=== PATIENT | male | born 1995 | race Caucasian/White ===

== ENCOUNTER 2020-09-29 05:05 | Emergency (ER) | payer SELFPAY ==
[2020-09-29 06:17] LABS: Bilirubin Negative (Negative); Blood, Urine 3+ (Negative); Clarity Clear (Clear); Glucose, Urine (Dipstick) Normal (Negative); Ketone, Urine Negative (Negative); Leukocyte Negative Leu/uL (Negative); Nitrite Negative (Negative); Protein, Urine (Dipstick) Negative (Neg-Trace); Specific Gravity, Urine 1.012 (1.002-1.036); Urobilinogen Normal mg/dL (Less than 2); pH, Urine 5.5 (5.0-9.0)
[2020-09-29 07:24] LABS: #Basophils 0.1 thou/uL (0.0-0.2); #Eosinphils 0.1 thou/uL (0.0-0.7); #Lymphocytes 2.1 thou/uL (1.20-3.40); #Monocytes 0.7 thou/uL (0.11-0.59); #Neutrophils 5.6 thou/uL (1.40-6.50); %Basophils 0.9 % (0.0-1.0); %Eosinophils 1.3 % (0.0-10.0); %Lymphocytes 24.4 % (21.0-51.0); %Monocytes 8.4 % (0.0-10.0); %Neutrophils 64.9 % (42.0-75.0); Hemoglobin 16.6 g/dL (14.0-18.0); Mean Corpuscular HGB CONC 35.3 g/dL (32.0-36.0); Mean Corpuscular Hemoglobin 32.3 pg (27.0-31.0); Mean Corpuscular Volume 91.3 fL (78.0-98.0); Mean Platelet Volume 7.4 fL (7.4-10.4); Platelet Count 287 thou/uL (130-400); RBC Distribution Width 11.3 % (11.5-14.5); Red Blood Cell (RBC) Count 5.16 mill/uL (4.70-6.10); White Blood Cell (WBC) Count 8.6 thou/uL (4.8-10.8)
[2020-09-29 07:45] LABS: ALT (SGPT) 22 U/L (8-55); AST (SGOT) 28 U/L (5-34); Alkaline Phosphatase 68 U/L (40-110); Anion Gap 18 mmol/L (10-20); BUN (Urea Nitrogen) 12 mg/dL (8.9-20.6); Bilirubin, Total 0.6 mg/dL (0.2-1.2); Calc. Creatinine Clearance 0 mL/min (70-130); Calcium 9.4 mg/dL (7.8-10.44); Carbon Dioxide 22 mmol/L (22-29); Chloride 102 mmol/L (98-107); Globulin 3.7 g/dL (2.4-3.5); Glucose 82 mg/dL (70-105); Potassium 3.9 mmol/L (3.5-5.1); Protein, Total 8.7 g/dL (6.0-8.3); Sodium 138 mmol/L (136-145)
--- NOTE | 2020-09-29 07:51 | CT ---
PRELIMINARY REPORT/[facility]/EMERGENCY AFTER HOURS PROCEDURE EXAM: CT Head Without Intravenous Contrast. CLINICAL HISTORY: PT FELL ASLEEP WHILE DRIVING HOME FROM WORK [place] [address]. PT C/O OF NECK AND BACK PAIN. PT REPORTS HAVI NG A HEADACHE. PT REPORTS THINKING HE BROKE HIS NOSE- NO DEFORMITY. PT WAS NOT RESTRAINED AND WOKE UP IN THE BACK OF THE TRUCK. LEVEL 2 TRAUMA ACTIVATED. C-COLLAR APPLIED. TECHNIQUE: Axial computed tomography images of the head/brain without intravenous contrast. COMPARISON: None provided. FINDINGS: BRAIN: No acute intraparenchymal hemorrhage. No mass lesion. No CT evidence for acute territorial infarct. N o midline shift or extra-axial collection. VENTRICLES: No hydrocephalus. ORBITS: The orbits are unremarkable. SINUSES AND MASTOIDS: The paranasal sinuses and mastoid air cells are clear. SOFT TISSUES: No significant facial or scalp soft tissue swelling evident. No radiopaque foreign body is seen. BONES: No acute skull fracture. IMPRESSION: No acute intracranial abnormality. ELECTRONICALLY SIGNED BY: Harley Cárdenas MD Sep 29, 2020 6:00:33 AM STORES ASSISTANT This report is intended for review by the ordering physician only, in accordance of law. If you recei ve this report in error, please call [facility] at [phone]. FINAL REPORT FINAL REPORT: CT brain PROVIDED CLINICAL HISTORY: Trauma COMPARISON: None FINDINGS/IMPRESSION: Agree with the preliminary interpretation given by [facility], with the following modification: There is a nondisplaced left nasal bone fracture. Transcribed Date/Time: 09/29/2020 8:18 AM
--- NOTE | 2020-09-29 07:53 | CT ---
PRELIMINARY REPORT/[facility]/EMERGENCY AFTER HOURS PROCEDURE EXAM: CT Cervical Spine Without Intravenous Contrast. CLINICAL HISTORY: PT FELL ASLEEP WHILE DRIVING HOME FROM WORK [place] [address]. PT C/O OF NECK AND BACK PAIN. PT REPORTS HAVI NG A HEADACHE. PT REPORTS THINKING HE BROKE HIS NOSE- NO DEFORMITY. PT WAS NOT RESTRAINED AND WOKE UP IN THE BACK OF THE TRUCK. LEVEL 2 TRAUMA ACTIVATED. C-COLLAR APPLIED. TECHNIQUE: Axial computed tomography images of the cervical spine without intravenous contrast. Sagittal and cor onal reformations performed. COMPARISON: None provided. FINDINGS: BONES: No acute fracture or focal osseous lesion. Bony alignment is anatomic. DISCS / DEGENERATIVE CHANGES: No significant disc or facet degeneration. No significant central canal or neural foraminal stenosis. SOFT TISSUES: No prevertebral soft tissue swelling. No apical pneumothorax. IMPRESSION: No acute cervical spine abnormality. ELECTRONICALLY SIGNED BY: Harley Cárdenas MD Sep 29, 2020 6:03:20 AM PROFESSOR OF ART HISTORY This report is intended for review by the ordering physician only, in accordance of law. If you recei ve this report in error, please call [facility] at [phone]. FINAL REPORT FINAL REPORT: CT cervical spine PROVIDED CLINICAL HISTORY: Trauma COMPARISON: None FINDINGS/IMPRESSION: Agree with the preliminary interpretation given by [facility]. Transcribed Date/Time: 09/29/2020 8:20 AM
--- NOTE | 2020-09-29 07:55 | CT ---
PRELIMINARY REPORT/[facility]/EMERGENCY AFTER HOURS PROCEDURE EXAM: CT Maxillofacial Without Intravenous Contrast. CLINICAL HISTORY: PT FELL ASLEEP WHILE DRIVING HOME FROM WORK [place] [address]. PT C/O OF NECK AND BACK PAIN. PT REPORTS HAVI NG A HEADACHE. PT REPORTS THINKING HE BROKE HIS NOSE- NO DEFORMITY. PT WAS NOT RESTRAINED AND WOKE UP IN THE BACK OF THE TRUCK. LEVEL 2 TRAUMA ACTIVATED. C-COLLAR APPLIED. TECHNIQUE: Axial computed tomography images of the face without intravenous contrast. Sagittal and coronal refor mations performed. CONTRAST: Without COMPARISON: None provided. FINDINGS: BONES: Acute fracture involving the left nasal bone. Overlying soft tissue swelling is seen. The huizar of the maxillary sinuses and the orbits appear intact. The zygomatic arches appear intact. The mandible is intact. SOFT TISSUES: The paranasal soft tissues are unremarkable. SINUSES: The sinuses are clear. ORBITS: The orbits are normal. No retrobulbar hematoma or mass. IMPRESSION: Left nasal bone fracture. ELECTRONICALLY SIGNED BY: Harley Cárdenas MD Sep 29, 2020 6:01:44 AM ASSEMBLING INSPECTOR This report is intended for review by the ordering physician only, in accordance of law. If you recei ve this report in error, please call [facility] at [phone]. FINAL REPORT FINAL REPORT: CT facial bones PROVIDED CLINICAL HISTORY: Trauma COMPARISON: None FINDINGS/IMPRESSION: Agree with the preliminary interpretation given by [facility]. Transcribed Date/Time: 09/29/2020 8:22 AM
--- NOTE | 2020-09-29 07:58 | CT ---
PRELIMINARY REPORT/[facility]/EMERGENCY AFTER HOURS PROCEDURE EXAM: CT Chest with Intravenous Contrast. CT Abdomen and Pelvis with Intravenous Contrast CLINICAL HISTORY: PT FELL ASLEEP WHILE DRIVING HOME FROM WORK [place] [address]. PT C/O OF NECK AND BACK PAIN. PT REPORTS HAVI NG A HEADACHE. PT REPORTS THINKING HE BROKE HIS NOSE- NO DEFORMITY. PT WAS NOT RESTRAINED AND WOKE UP IN THE BACK OF THE TRUCK. LEVEL 2 TRAUMA ACTIVATED. C-COLLAR APPLIED. TECHNIQUE: Axial computed tomography images of the chest, abdomen and pelvis with intravenous contrast. CONTRAST: With; ISOVUE 370,80mL COMPARISON: None provided. FINDINGS: CHEST: LUNGS: No pulmonary mass. No focal airspace consolidation. PLEURAL SPACES: No pleural effusion. No pneumothorax. HEART AND MEDIASTINUM: No cardiomegaly. No significant pericardial effusion. LYMPH NODES: No lymphadenopathy. ABDOMEN AND PELVIS: LIVER: Unremarkable. No focal lesions. GALLBLADDER AND BILE DUCTS: Unremarkable. No calcified stone. No ductal dilation. PANCREAS: Unremarkable. SPLEEN: Unremarkable. ADRENAL GLANDS: Unremarkable. KIDNEYS, URETERS, AND BLADDER: Unremarkable. No hydronephrosis or nephrolithiasis. No ureteral or bladder calculi. STOMACH AND BOWEL: No obstruction. No wall thickening. No CT evidence of colitis or acute diverticulitis. APPENDIX: No CT evidence for appendicitis. PERITONEUM: No free fluid. No free air. LYMPH NODES: No lymphadenopathy. REPRODUCTIVE: Unremarkable as visualized. VASCULATURE: No aortic aneurysm. BONES AND SOFT TISSUES: No acute osseous abnormality. The soft tissues are unremarkable. IMPRESSION: No acute intra-thoracic, intra-abdominal, or intra-pelvic abnormality. ELECTRONICALLY SIGNED BY: Harley Cárdenas MD Sep 29, 2020 6:02:45 AM VOLLEYBALL ASSISTANT COACH This report is intended for review by the ordering physician only, in accordance of law. If you recei ve this report in error, please call [facility] at [phone]. FINAL REPORT FINAL REPORT: CT chest, abdomen and pelvis with IV contrast PROVIDED CLINICAL HISTORY: Trauma COMPARISON: None FINDINGS/IMPRESSION: Agree with the preliminary interpretation given by [facility]. Transcribed Date/Time: 09/29/2020 8:24 AM
[2020-09-29] MEDS ORDERED: Iopamidol-370 76% 500 ML 1 ML ONE (12:10)
== END 2020-09-29 06:32 | disposition home or self-care (01) ==
LOC: ERS 05:05
DX: S02.2XXA Fracture of nasal bones, initial encounter for closed fracture (principal); S40.212A Abrasion of left shoulder, initial encounter; S40.811A Abrasion of right upper arm, initial encounter; S30.811A Abrasion of abdominal wall, initial encounter; V49.40XA Driver injured in collision with unspecified motor vehicles in traffic accident, initial encounter; Y92.410 Unspecified street and highway as the place of occurrence of the external cause
CPT/HCPCS: 70450; 70486; 71260; 72125; 74177; 80053; 81003; 81015; 85025; Q9967